=== PATIENT | female | born 1970 ===

== ENCOUNTER 2021-01-01 15:04 | Outpatient (CLI) | payer OTHER, SELFPAY ==
--- NOTE | 2021-01-01 15:06 | MM_ITS ---
WS: [id number] BILATERAL DIGITAL SCREENING MAMMOGRAPHY WITH CAD CLINICAL INFORMATION: SCREENING HISTORY: Screening mammogram. No current complaints. COMPARISON: TECHNIQUE: Bilateral CC and MLO views. FINDINGS: Scattered fibroglandular densities bilaterally. No suspicious focal mass, asymmetry, calcifications, or architectural distortion. No evidence of malignancy. Punctate calcification left breast. MM/[id number] IMPRESSION: BI-RADS: 2-Benign FOLLOW UP: 1 Year Follow-up Recommend return to annual screening mammography.
== END 2021-01-01 15:05 | disposition home or self-care (01) ==
LOC: RADSHAW 15:04
PROVIDERS: PCP Family Medicine; Visit Provider Family Medicine
DX: Z12.31 Encounter for screening mammogram for malignant neoplasm of breast (principal)
CPT/HCPCS: 77067

== ENCOUNTER 2021-12-07 13:36 | Outpatient (CLI) | payer OTHER, SELFPAY ==
[2021-12-07 14:47] LABS: Alanine Aminotransferase 10 U/L (0-33); Alkaline Phosphatase 116 IU/L (35-105); Anion Gap 16.9 (5-19); Aspartate Amino Transferase 15 U/L (0-32); Blood Urea Nitrogen 11 mg/dL (6-20); Calcium 9.5 mg/dL (8.5-10.5); Carbon Dioxide 21 mmol/L (22-29); Chloride 106 mmol/L (98-107); Chol HDL Ratio 3.98 mg/dL (0.0-4.40); Cholesterol 203 mg/dL (0-200); Follicle Stimulating Hormone 16.4 mIU/mL; Globulin 3.2 g/dL (1.3-4.6); Glomerular Filtration Rate 76.6 mL/min (90-130); Glucose 92 mg/dL (65-115); HDL Cholesterol 51 mg/dL (60-100); LDL Cholesterol Calculated 117 mg/dL (50-129); LDL HDL Ratio 2.29 RATIO (0.00-3.22); Osmolality Calculated 289 mOsm/kg (285-295); Potassium 3.9 mmol/L (3.5-5.1); Sodium 140 mmol/L (136-145); Thyroid Stimulating Hormone 1.36 uIU/mL (0.27-4.20); Total Bilirubin 0.2 mg/dL (0.15-1.2); Total Protein 7.2 g/dL (6.6-8.7); Triglycerides 176 mg/dL (0-150)
== END 2021-12-07 13:37 | disposition home or self-care (01) ==
LOC: LAB 13:41
PROVIDERS: PCP Family Medicine; Visit Provider Family Medicine
DX: R23.2 Flushing (principal); Z00.00 Encounter for general adult medical examination without abnormal findings
CPT/HCPCS: 80053; 80061; 83001; 84443

== ENCOUNTER 2022-03-08 08:11 | Outpatient (CLI) | payer OTHER, SELFPAY ==
--- NOTE | 2022-03-08 08:16 | MM_ITS ---
WS: [id number] BILATERAL SCREENING 3D TOMOSYNTHESIS DIGITAL MAMMOGRAM WITH CAD HISTORY: SCREENING COMPARISON: 01/01/2021 and 12/08/2018 Bilateral CC and MLO views submitted. Computer aided detection analyzed. Breast composition: There are scattered areas of fibroglandular density. No suspicious masses, microc alcifications or architectural distortion. Benign calcification LEFT breast. MM/[id number] IMPRESSION: BI-RADS: 2-Benign FOLLOW UP: 1 Year Follow-up
== END 2022-03-08 08:12 | disposition home or self-care (01) ==
LOC: RADSHAW 08:12
PROVIDERS: PCP Family Medicine; Visit Provider Family Medicine
DX: Z12.31 Encounter for screening mammogram for malignant neoplasm of breast (principal)
CPT/HCPCS: 77063; 77067